=== PATIENT | female | born 1985 ===

== ENCOUNTER 2025-02-04 10:54 | Outpatient (CLI) | payer BC, SELFPAY ==
[2025-02-04 08:58] LABS: ALT 17 U/L (14-59); AST 13 U/L (15-37); Albumin 4.1 g/dL (3.4-5.0); Alkaline Phosphatase 41 U/L (46-116); Anion Gap 8.1 mmol/L (3-11); BUN 16 mg/dL (7-18); Bilirubin, Total 0.4 mg/dL (0.2-1.0); CO2 29.9 mmol/L (21.0-32.0); CREATININE 0.7 mg/dL (0.55-1.02); Calcium 9.2 mg/dL (8.5-10.1); Chloride 106 mmol/L (98-107); Cholesterol 256 mg/dL (<200); Estimated GFR 111.36 (mL/min/1.73m2); Glucose 95 mg/dL (74-106); HDL Cholesterol 68 mg/dL (>or=50); Sodium 144 mmol/L (136-145); Total Protein 7.2 g/dL (6.4-8.2); Vitamin D 25 Total 40 ng/mL (30-100)
[2025-02-04 08:59] LABS: Triglyceride <25 mg/dL (<150)
[2025-02-04 09:11] LABS: LDL CHOLESTEROL 177 mg/dL (<100)
[2025-02-04 09:12] LABS: Hemoglobin A1C 5.3 % (<5.7)
[2025-02-04 21:37] LABS: Homocysteine 8.6 umol/L (5.0-13.9)
[2025-02-05 11:08] LABS: IgA 159 mg/dL (85-499); Interpretation (See Note); Tissue Transglutaminase IgA <4.0 CU (<20.0)
[2025-02-06 11:11] LABS: Lipoprotein (a) <7 nmol/L (<75)
[2025-02-06 15:26] LABS: Copper, Serum 82 mcg/dL (77-206)
[2025-02-07 06:47] LABS: Apolipoprotein A1, S 139 mg/dL (>=140); Apolipoprotein B, S 126 mg/dL (See Comment); Apolipoprotein B/A 1 ratio 0.9 (See Comment)
== END 2025-02-04 10:55 | disposition home or self-care (01) ==
LOC: LBO 10:55
PROVIDERS: PCP Naturopath; Visit Provider Naturopath
DX: K52.9 Noninfective gastroenteritis and colitis, unspecified (principal); E78.2 Mixed hyperlipidemia; E55.9 Vitamin D deficiency, unspecified; D53.9 Nutritional anemia, unspecified
CPT/HCPCS: 36415; 80053; 80061; 82172; 82306; 82525; 82784; 83090; 83516; 83695; 83721; 86141; 83036; 83735

== ENCOUNTER 2025-09-18 08:12 | Outpatient (CLI) | payer BC, SELFPAY ==
[2025-09-18 09:29] LABS: Cholesterol 243 mg/dL (<200); HDL Cholesterol 72 mg/dL (>40); Vitamin D 25 Total 48 ng/mL (30-100)
[2025-09-18 09:31] LABS: Iron 81 ug/dL (50-170)
[2025-09-18 09:32] LABS: Total Iron Binding Capacity 277 ug/dL (250-425); Transferrin Sat 29 % (15-50)
[2025-09-18 09:50] LABS: Ferritin 92 ng/mL (7-271); Folate 20.1 ng/mL (>5.38); Vitamin B12 883 pg/mL (211-911)
[2025-09-20 13:04] LABS: Copper, Serum 87 mcg/dL (77-206)
== END 2025-09-18 08:13 | disposition home or self-care (01) ==
LOC: LBO 08:13
PROVIDERS: PCP Naturopath; Visit Provider Naturopath
DX: E78.2 Mixed hyperlipidemia (principal); D53.9 Nutritional anemia, unspecified; E55.9 Vitamin D deficiency, unspecified
CPT/HCPCS: 36415; 80061; 82306; 82525; 82607; 82728; 82746; 83540; 83550